=== PATIENT | female | born 1935 | race Caucasian/White ===

== ENCOUNTER 2016-06-05 14:44 | Emergency (ER) | payer OTHER, MEDICARE ==
[~2016-06-05] VITALS: Wt 76.0 kg
[~2016-06-05 14:44] MED LIST: ALBU8.5H3 INH; ALEN70TA30 PO; ATEN100T PO; AUG875 PO; BENA40TA41 PO; CEPH-443 PO; IBUP400T22 PO; INSU100I14 SC; IPRA30SP NASAL; LANT3I SC; LEVO100T87 PO; MECL-77 PO; Meclizine Hcl PO; ULT50 PO
[2016-06-05] MEDS ORDERED: ONDANSETRON 4 MG INJ IV STA (15:27)
[2016-06-05] MEDS ORDERED: morphine 4 MG/ML VIAL IV STA (15:27)
[2016-06-05] MEDS ORDERED: PIPER-TAZO 3.375 GM IV (PMX) 100 ML IVPB STA (15:27)
[2016-06-05] MEDS ORDERED: SODIUM CHLORIDE 0.9% 1L BAG IV* STA (15:27)
[2016-06-05] MEDS ORDERED: VANCOMYCIN 1 GM (PMX) 250 ML IVPB ONE (15:30)
[2016-06-05 15:55] LABS: BASOPHILS % 0.5 % (0.0-2.0); EOSINOPHILS # 0.1 10^3/ul (0.0-0.5); EOSINOPHILS % 1.6 % (0.0-7.0); HEMATOCRIT 40.1 % (37.0-47.0); HEMOGLOBIN 13.4 g/dl (12.0-16.0); LYMPHOCYTES # 1.8 10^3/ul (0.8-2.9); LYMPHOCYTES % 30.7 % (15.0-51.0); MEAN CORPUSCULAR HEMOGLOBIN 28.2 pg (29.0-33.0); MEAN CORPUSCULAR HGB CONC 33.4 g/dl (32.0-37.0); MEAN CORPUSCULAR VOLUME 84.5 fl (82.0-101.0); MEAN PLATELET VOLUME 10.9 fl (7.4-10.4); MONOCYTE # 0.4 10^3/ul (0.3-0.9); MONOCYTES % 7.1 % (0.0-11.0); NEUTROPHIL # 3.4 10^3/ul (1.6-7.5); NEUTROPHILS % 60.1 % (39.0-77.0); PLATELET COUNT 282 10^3/UL (140-440); RED BLOOD COUNT 4.75 10^6/ul (4.20-5.40); UNCORRECTED WBC 5.7 10^3/ul (4.8-10.8); WHITE BLOOD COUNT 5.7 10^3/ul (4.8-10.8)
[2016-06-05 15:57] LABS: URINE BILIRUBIN (Dip) NEGATIVE (NEGATIVE); URINE BLOOD (Dip) NEGATIVE (NEGATIVE); URINE COLOR LT. YELLOW (YELLOW); URINE GLUCOSE (Dip) NEGATIVE (NEGATIVE); URINE KETONES (Dip) NEGATIVE (NEGATIVE); URINE LEUKOCYTE ESTERASE (Dip) NEGATIVE (NEGATIVE); URINE NITRITE (Dip) NEGATIVE (NEGATIVE); URINE UROBILINOGEN (Dip) 0.2 E.U./dL (0.1-1.0)
[2016-06-05 15:58] LABS: CONDITION 1
[2016-06-05] MEDS ORDERED: LABETALOL HCL 20MG INJ IV ONE (16:00)
[2016-06-05 16:02] LABS: ADD UMIC NO; URINE TOTAL PROTEIN (Dip) NEGATIVE (NEGATIVE)
[2016-06-05 16:10] LABS: ALBUMIN 4.3 g/dl (3.3-4.9); CHLORIDE 100 mmol/L (97-110); INR 0.96; PROTIME 12.8 Sec (12.2-14.2); SODIUM 144 mmol/L (135-144)
[2016-06-05 16:11] LABS: PARTIAL THROMBOPLASTIN TIME 32.9 Sec (25.0-35.0); POTASSIUM 4.9 mmol/L (3.5-5.1)
[2016-06-05 16:13] LABS: ALBUMIN/GLOBULIN RATIO 0.86; ALKALINE PHOSPHATASE 135 IU/L (42-121); ANION GAP 20 (8-16); ASPARTATE AMINO TRANSFERASE 26 IU/L (15-46); BLOOD UREA NITROGEN 25 mg/dl (7-20); CALCIUM 10.2 mg/dl (8.4-10.2); CARBON DIOXIDE 29 mmol/L (21-31); CREATININE 0.96 mg/dl (0.44-1.00); GLUCOSE 163 mg/dl (70-220); TOTAL PROTEIN 9.3 g/dl (6.1-8.1)
[2016-06-05 16:14] LABS: ALANINE AMINOTRANSFERASE 16 IU/L (13-69)
[2016-06-05 16:34] LABS: TROPONIN-I < 0.010 ng/ml (0.00-0.12)
--- NOTE | 2016-06-05 16:44 | RADRPT ---
PROCEDURE: XR Chest. CLINICAL INDICATION: Possible sepsis. Abdominal pain TECHNIQUE: Single frontal view of the chest was obtained. COMPARISON: 10/18/2015. FINDINGS: Cardiac silhouette is normal. There is calcification in the thoracic aorta. Pulmonary vasculature appears normal. Oblique discoid atelectasis seen in the upper lung walker bilaterally, left greater than right. No focal airspace consolidation. Costophrenic angles are well defined. IMPRESSION: 1. Oblique atelectasis in both upper lung walker, left greater than right. Pattern is similar to th e prior study may be chronic. 2. No focal airspace process seen. 3. Aortic atherosclerosis RPTAT: [facility] Physician Amber Date Time Electronically viewed and signed by Joseph Sheehan Physician on 06/05/2016 16:43 /
[2016-06-05] MEDS ORDERED: SITA100T8 PO (16:49)
[2016-06-05] MEDS ORDERED: HYD25 PO (16:50)
[2016-06-05] MEDS ORDERED: GEMF600T60 PO (16:50)
[2016-06-05] MEDS ORDERED: ASPI-664 PO (16:54)
[2016-06-05] MEDS ORDERED: POLY15DR25 BOTH EYES (16:55)
[2016-06-05] MEDS ORDERED: IOHEXOL 300MG/ML 150 ML BTL ONE (16:56)
[2016-06-05] MEDS ORDERED: LANT3I SC ×2 (16:56)
[2016-06-05] MEDS ORDERED: SOD CHLORIDE 0.9% 100 ML ONE (16:56)
[2016-06-05] MEDS ORDERED: INSU100I12 SQ (16:58)
[2016-06-05] MEDS ORDERED: CEPH-443 PO (18:43)
[2016-06-05] MEDS ORDERED: BACTDS PO (18:43)
--- NOTE | 2016-06-05 18:44 | ERD ---
ER Documentation Chief Complaint Date/Time DATE: 06/05/16 TIME: 18:44 Chief Complaint RIGHT SIDE ABD PAIN, APPENDECTOMY 2 MONTHS AGO HPI Patient is a 80-year-old female with diabetes and hypertension who presents with abdominal pain. The patient has no fevers. She has pain around the wound site where she had an open appendectomy done on April 14 in [facility]. She has had some discharge from the wound over the past few days. She saw her doctor last week on May 31 and was told today by a visiting nurse to go to the emergency department for evaluation. She has had no treatment as of yet. She said that her primary doctor is Dr. Carpenter. ROS All systems reviewed and are negative except as per history of present illness. Medications Home Meds Active Scripts Sulfamethoxazole-Trimethoprim* (Bactrim* DS) 800-160 Mg Tab, 1 TAB PO BID for 7 Days, TAB Prov:ARNOLD COHEN MD 06/05/16 Cephalexin* (Keflex*) 500 Mg Capsule, 500 MG PO QID for 7 Days, CAP Prov:ARNOLD COHEN MD 06/05/16 Reported Medications Insulin Lispro (Humalog Kwikpen U-100) 100 Unit/1 Ml Insuln.pen, 0 SQ AC MEALS SLIDING SCALE 06/05/16 Insulin Glargine* (Lantus*) 100 Unit/Ml Soln, 20 UNIT SC QPM, #1 VIAL 06/05/16 Insulin Glargine* (Lantus*) 100 Unit/Ml Soln, 35 UNIT SC QAM, #1 VIAL 06/05/16 Polyvinyl Alcohol (Tears Again) 15 Ml Drops, 1 DRP BOTH EYES DAILY, BOTTLE 06/05/16 Aspirin (Low Dose Aspirin) 81 Mg Tablet.dr, 81 MG PO DAILY, #30 TAB 06/05/16 Hydrochlorothiazide* (Hydrochlorothiazide*) 25 Mg Tab, 25 MG PO DAILY, #30 TAB 06/05/16 Gemfibrozil* (Gemfibrozil*) 600 Mg Tablet, 600 MG PO BID, TAB 06/05/16 Sitagliptin* (Januvia*) 100 Mg Tablet, 100 MG PO DAILY, #30 TAB 06/05/16 Levothyroxine Sodium* (Levothyroxine Sodium*) 100 Mcg Tablet, 100 MCG PO AC BREAKFAST, TAB 12/01/14 Albuterol Sulfate* (Proair HFA*) 8.5 Gm Hfa.aer.ad, 2 PUFF INH Q4H Y for WHEEZING AND SOB, INH 12/01/14 Insulin Lispro (Humalog) 100 U/Ml Insuln.pen, 7 UNITS SC QPM, EA 12/01/14 Alendronate Sodium* (Fosamax*) 70 Mg Tablet, 70 MG PO Q7D, TAB 12/01/14 Atenolol* (Atenolol*) 100 Mg Tablet, 100 MG PO DAILY, TAB 12/01/14 Discontinued Reported Medications Meclizine Hcl* (Meclizine Hcl*) 25 Mg Tablet, 25 MG PO Q8H Y for DIZZINESS, TAB 12/01/14 Insulin Glargine* (Lantus*) 100 Unit/Ml Soln, 35 UNIT SC DAILY, EA 12/01/14 Ipratropium Vilonia* (Ipratropium Vilonia*) 21 Mcg [place], 2 SPRAY NASAL TID, SPRAY TO EACH NOSTRIL 12/01/14 Insulin Lispro (Humalog) 100 U/Ml Insuln.pen, 7 UNITS SC AFTERNOON, EA 12/01/14 Benazepril Hcl* (Benazepril Hcl*) 40 Mg Tablet, 40 MG PO DAILY, TAB 12/01/14 Discontinued Scripts Cephalexin* (Keflex*) 500 Mg Capsule, 500 MG PO TID for 7 Days, CAP Prov:DIANA OREILLY MD 10/18/15 Ibuprofen* (Ibuprofen*) 400 Mg Tablet, 400 MG PO Q6H Y for PAIN, #20 TAB Prov:RICH KNIGHT MD 04/04/15 Tramadol HCl (Tramadol HCl) 50 Mg Tab, 50 MG PO BID, #20 TAB Prov:RICH KNIGHT MD 04/04/15 Amoxicillin-Clavulanate K* (Augmentin*) 875 Mg Tab, 875 MG PO BID, #14 TAB Prov:NAYELY PANTOJA 12/04/14 [Meclizine Hcl] 25 MG TAB No Conflict Check, 25 MG PO TID, #60 TAB Prov:NAYELY PANTOJA 12/04/14 Allergies Allergies: Coded Allergies: No Known Drug Allergy (Verified Allergy, Unknown, 06/05/16) PMhx/Soc History of Surgery: Yes (Cataract/Sinus, gallbladder ) Anesthesia Reaction: No Hx Neurological Disorder: No Hx Respiratory Disorders: Yes (Hx Asthma) Hx Cardiac Disorders: Yes (HTN) Hx Psychiatric Problems: No Hx Miscellaneous Medical Probl: Yes (dm) Hx Alcohol Use: Yes (occassional ) Hx Substance Use: No Hx Tobacco Use: No Smoking Status: Never smoker FmHx Family History: diabetes Physical Exam Vitals Vital Signs Date Time Temp Pulse Resp B/P Pulse Ox O2 Delivery O2 Flow Rate FiO2 06/05/16 17:47 61 16 120/96 94 Room Air 06/05/16 14:53 97.9 71 18 208/85 96 Physical Exam Const: No acute distress Head: Atraumatic Eyes: Normal Conjunctiva ENT: Normal External Ears, Nose and Mouth. Neck: Full range of motion..~ No meningismus. Resp: Clear to auscultation bilaterally Cardio: Regular rate and rhythm, no murmurs Abd: Soft, non tender, non distended. Normal bowel sounds Skin: Mild erythema to the surgical wound sites, no pus from the wound at this time Back: No midline or flank tenderness Ext: No cyanosis, or edema Neur: Awake and alert Psych: Normal Mood and Affect Result Diagram: 06/05/16 1530 06/05/16 1530 Results 24 hrs Laboratory Tests Test 06/05/16 15:27 06/05/16 15:30 06/05/16 15:45 06/05/16 17:33 Urine Bilirubin NEGATIVE Urine Clarity CLEAR Urine Color LT. YELLOW Urine Glucose NEGATIVE% Urine Hemoglobin NEGATIVE Urine Ketones NEGATIVE Urine Leukocyte Esterase NEGATIVE Urine Nitrite NEGATIVE Urine Specific [place] 1.010 Urine Total Protein NEGATIVE Urine Urobilinogen 0.2 E.U./dL Urine pH 6.0 Activated Partial Thromboplast Time 32.9Sec Alanine Aminotransferase (ALT/SGPT) 16IU/L Albumin 4.3g/dl Albumin/Globulin Ratio 0.86 Alkaline Phosphatase 135IU/L Anion Gap 20 Aspartate Amino Transf (AST/SGOT) 26IU/L Basophils # 0.010^3/ul Basophils % 0.5% Blood Morphology Comment Blood Urea Nitrogen 25mg/dl Calcium Level 10.2mg/dl Carbon Dioxide Level 29mmol/L Chloride Level 100mmol/L Creatinine 0.96mg/dl Direct Bilirubin 0.00mg/dl Eosinophils # 0.110^3/ul Eosinophils % 1.6% Globulin 5.00g/dl Glucose Level 163mg/dl Hematocrit 40.1% Hemoglobin 13.4g/dl INR International Normalized Ratio 0.96 Indirect Bilirubin 0.0mg/dl Lymphocytes # 1.810^3/ul Lymphocytes % 30.7% Mean Corpuscular Hemoglobin 28.2pg Mean Corpuscular Hemoglobin Concent 33.4g/dl Mean Corpuscular Volume 84.5fl Mean Platelet Volume 10.9fl Monocytes # 0.410^3/ul Monocytes % 7.1% Neutrophils # 3.410^3/ul Neutrophils % 60.1% Nucleated Red Blood Cells # 0.010^3/ul Nucleated Red Blood Cells % 0.0/100WBC Platelet Count 33575^3/UL Potassium Level 4.9mmol/L Prothrombin Time 12.8Sec Prothrombin Time Ratio 1.0 Red Blood Count 4.7510^6/ul Red Cell Distribution Width 14.0% Sodium Level 144mmol/L Total Bilirubin 0.0mg/dl Total Protein 9.3g/dl Troponin I < 0.010ng/ml White Blood Count 5.710^3/ul Lactic Acid Level 0.9mmol/L 1.1mmol/L Current Medications Medications (Trade) Dose Ordered Sig/Sadie Route PRN Reason Start Time Stop Time Status Last Admin Dose Admin Sodium Chloride 2360 ml 2,360 ml BOLUS OVER 2 HOURS STAT IV* 06/05/16 15:27 06/05/16 15:28 DC 06/05/16 15:46 Vancomycin HCl 250 ml @ 125 mls/hr ONCE ONCE IVPB 06/05/16 15:30 06/05/16 17:29 DC 06/05/16 16:35 Piperacillin Sod/ Tazobactam Sod (Zosyn 3.375gm/ 100 ml (Pmx)) 100 ml @ 200 mls/hr ONCE STAT IVPB 06/05/16 15:27 06/05/16 15:56 DC 06/05/16 15:46 Morphine Sulfate (morphine) 4 mg ONCE STAT IV 06/05/16 15:27 06/05/16 15:28 DC 06/05/16 15:47 Ondansetron HCl (Zofran Inj) 4 mg ONCE STAT IV 06/05/16 15:27 06/05/16 15:28 DC 06/05/16 15:46 Labetalol HCl (Labetalol) 20 mg ONCE ONCE IV 06/05/16 16:00 06/05/16 16:01 DC IV Flush 10 ml 10 ml STK-MED ONCE .ROUTE 06/05/16 16:56 06/05/16 16:57 DC 06/05/16 16:56 Sodium Chloride (NS) 100 ml @ ud STK-MED ONCE .ROUTE 06/05/16 16:56 06/05/16 16:57 DC 06/05/16 16:56 Iohexol (Omnipaque 300mg/ ml) 150 ml STK-MED ONCE .ROUTE 06/05/16 16:56 06/05/16 16:57 DC 06/05/16 16:56 Procedures/MDM EKG read by me: Rate/Rhythm: Regular rate and rhythm at a rate of 70 Intervals: Normal Impression: No evidence of ischemia or arrhythmia CT shows no sign of intra-abdominal abscess per radiology. Patient is a 80-year-old female presents with discharge from a surgical site wound. There is mild erythema but no signs of tony pus. CT scan does not show any signs of intra-abdominal abscess. I will treat with Bactrim and Keflex for a minimal skin cellulitis but I do not think the patient requires admission at this time. Her vital signs are normal and her white blood cell count is normal. She has no fever. She can return for any worsening symptoms. She should follow-up with her primary doctor within 48 hours for recheck. She was given copies of her laboratory studies and CT scan report prior to discharge. Departure Diagnosis: Primary Impression: Cellulitis Site of cellulitis: trunk Site of cellulitis of trunk: abdominal wall Qualified Code: L03.311 - Cellulitis of abdominal wall Additional Impression: Abdominal pain Abdominal location: generalized Qualified Code: R10.84 - Generalized abdominal pain Condition: Fair Patient Instructions: Cellulitis Additional Instructions: Llame al doctor MAANA y crystal linh CAMILO PARA DENTRO DE 1-2 ESPITIA.Dgale a la secretaria que nosotros le instruimos hacer esta camilo.Avise o llame si romero condicin se empeora antes de la camilo. Regresa aqui si peor o no mejor. ARNOLD COHEN MD Jun 05, 2016 18:44
--- NOTE | 2016-06-05 18:48 | RADRPT ---
PROCEDURE: CT Abdomen and Pelvis with contrast. CLINICAL INDICATION: Abdominal pain. TECHNIQUE: A CT scan of the abdomen and pelvis was performed with intravenous contrast. The patie nt was scanned following the uncomplicated intravenous administration of 100 cc of Isovue 300. Johnny nal and sagittal reformatted images were obtained from the axial source images. Images were reviewed on a high-resolution PACS workstation. CTDIvol: 19.13 mGy. DLP: 1071.08 mGy-cm. COMPARISON: None. FINDINGS: A patchy ground-glass opacities in both lower lungs. Mild atelectasis is noted in the right middle lobe. The liver is unremarkable. The patient is status post cholecystectomy. There is intrahepatic and ex trahepatic biliary ductal dilatation (CBD: 1.5 cm), probably due to age and absence of the gallbladd er. The spleen is not enlarged. No pancreatic lesion is identified and there is no pancreatic ducta l dilatation. The adrenal glands are unremarkable. The kidneys are normal in size. There is no perinephric fat stranding. No hydronephrosis is seen. The small and large bowel are normal in caliber. There is no bowel wall thickening. The patient stat us post recent appendectomy. There is infiltration of the subcutaneous fat at two sites in the righ t abdominal wall, but no abscess is identified in these regions. Ill-defined tubular infiltrative fo cus measuring approximately 1 cm diameter and 7 cm in length is seen within the right lateral perito shiela cavity anterior to the cecum, possibly an old drainage catheter track. There is mild rim enhan cement of this focus, raising the possibility of a developing abscess at this site. Minimal fluid i s seen inferior to the cecum, without evidence of abscess formation in this region. The urinary bladder is unremarkable. The pelvic organs are within normal limits. No lymphadenopathy is identified. There is no ascites. No pneumoperitoneum is seen. There are no art erial calcifications. No suspicious osseous lesion is idenitified. IMPRESSION: 1. Status post recent appendectomy. There is minimal fluid inferior to the cecum, without evidence of abscess formation in this region. 2. Ill-defined tubular infiltrate focus measuring approximately 1 cm in diameter and 7 cm in length within the right lateral peritoneal cavity anterior to the cecum, probably an old drainage catheter track. There is mild rim enhancement of this focus which extends through the right abdominal wall s ubcutaneous fat, raising the possibility of a developing abscess at this site. 3. Infiltration of the subcutaneous fat in the lower right abdominal wall, likely representing the surgical incision site. No enhancing fluid collection is identified in this region to suggest the p resence of an abscess. 4. Status post prior cholecystectomy. Call report: A call report of the findings was made to Dr. Zapata at 06:43 p.m. on 06/05/2016. RPTAT: HTAR .Renard Martinez MD, MD Date Time Electronically viewed and signed by .Renard Martinez MD, on 06/05/2016 18:48 .R/
[2016-06-05 19:45] VITALS: BP 111/90; PULSE 59; RESP 16; TEMP 98.9
== END 2016-06-05 19:45 | disposition home or self-care (01) ==
LOC: E/R 14:44
DX: L03.311 Cellulitis of abdominal wall (principal); R10.84 Generalized abdominal pain; J45.909 Unspecified asthma, uncomplicated; I10 Essential (primary) hypertension; E11.9 Type 2 diabetes mellitus without complications
CPT/HCPCS: 36415; 71010; 74177; 80053; 81003; 83605; 84484; 85025; 85610; 85730; 87040; 87086; 93005; 96374; 96375; J2270; J2405; J2543; J3370; J7030; Q9967; Z7502; Z7610

== ENCOUNTER → 2016-08-05 | Outpatient (CLI) | payer MEDICARE, OTHER ==
[~2016-08-05] MED LIST changes: +ALBUTEROL 0.083% (NEB) 2.5 MG/3 ML AMP ONE; +ASPI-664 PO; -AUG875 PO; +BACTDS PO; -BENA40TA41 PO; +GEMF600T60 PO; +HYD25 PO; -IBUP400T22 PO; +INSU100I12 SQ; -IPRA30SP NASAL; -MECL-77 PO; -Meclizine Hcl PO; +POLY15DR25 BOTH EYES; +SITA100T8 PO; -ULT50 PO
[2016-08-05 13:33] LABS: AADO2 Arterial 32.7 mmHg (7.0-24.0); Allen Test ACCEPTAB; Arterial Base Excess -1.6 mmol/L (-3.0-3); Arterial COHb 0.5 % (0.0-3.0); Arterial Fraction of Oxyhgb 90.6 % (93.0-99.0); Arterial HCO3 24.1 mmol/L (22.0-26.0); Arterial MetHb 0.4 % (0.0-1.5); MODE ROOM AIR
== END | disposition home or self-care (01) ==
LOC: PUL 13:06
PROVIDERS: ATTEND Internal Medicine
DX: R06.02 Shortness of breath (principal)
CPT/HCPCS: 36600; 82803; 94060; 94726; 94729

== ENCOUNTER 2016-10-12 07:46 | Emergency (ER) | payer MEDICARE, OTHER ==
[~2016-10-12] VITALS: Ht 152.4 cm; Wt 77.5 kg
[~2016-10-12 07:46] MED LIST changes: -ALBUTEROL 0.083% (NEB) 2.5 MG/3 ML AMP ONE
[2016-10-12 07:50] VITALS: Ht 152.4 cm; Wt 77.5 kg
[2016-10-12] MEDS ORDERED: NICARDipine HCL 30 MG CAPSULE PO ONE (08:30)
[2016-10-12] MEDS ORDERED: ACETAMINOPHEN 325 MG TAB PO ONE (08:30)
--- NOTE | 2016-10-12 08:47 | RADRPT ---
PROCEDURE: CT Brain without contrast. CLINICAL INDICATION: Headache. TECHNIQUE: A CT of the brain was performed on a multidetector CT scanner utilizing axial sections from the skull base through the vertex without contrast. Images were reviewed on a high-resolution [employer] workstation. Exam CTDI = 41.88 mGy and the DLP = 630.2 mGy-cm. One or the following dose reduction techniques were used: -Automated exposure control. -Adjustment of the mA and/or KV according to patient's size. -Use of iterative reconstruction technique COMPARISON: CT of the brain from 12/01/2014. FINDINGS: Mild diffuse cerebral and cerebellar atrophy is present. There is proportionate dilatation of the v entricular system and sulci in a symmetric fashion. There is prominence of the extraaxial spaces sec ondary to atrophy. There is no evidence of intracranial hemorrhage, mass effect or midline shift. N o abnormal intra-axial or extra-axial fluid collections are seen. The density of the brain is ashlie l and the neal/white matter differentiation is well preserved. Mild patchy diffuse deep white matte r microangiopathic ischemic change is seen. There is mucosal thickening in the ethmoid air cells an d left frontal sinus with a small inclusion cyst in the left ethmoid air cells suggesting inflammato ry change. There is persistent partial opacification of the mastoid air cells on the left.. There are intracranial atherosclerotic calcifications present. IMPRESSION: 1. Mild age related involutional change without evidence of a superimposed acute intracranial proce ss. 2. Microangiopathic ischemic change. 3. Findings suggesting inflammatory change in paranasal sinuses. 4. Intracranial atherosclerosis. RPTAT: AACC Physician Amber Date Time Electronically viewed and signed by Physician Amber on 10/12/2016 08:47 /
[2016-10-12] MEDS ORDERED: ACET325T33 PO (08:54)
--- NOTE | 2016-10-12 08:55 | ERD ---
ER Documentation Chief Complaint Date/Time DATE: 10/12/16 TIME: 08:55 Chief Complaint EVAL OF HIGH B/P AND HUMMEL HPI Patient is an 81-year-old female with hypertension and diabetes who presents with high blood pressure. She is complaining of headache and dizziness. Her symptoms started 2 days ago. She is taking her blood pressure medications. She has had no fevers. She has had no treatment for pain as of yet. She did not call her primary doctor Dr. Carpenter as of yet. She has no slurred speech or trouble with moving her arms or legs. Upon review of old medical records the patient has multiple visits for various complaints. ROS All systems reviewed and are negative except as per history of present illness. Medications Home Meds Active Scripts Acetaminophen* (Tylenol*) 325 Mg Tablet, 2 TAB PO Q8 Y for PAIN AND OR ELEVATED TEMP, #20 TAB Prov:ARNOLD COHEN MD 10/12/16 Sulfamethoxazole-Trimethoprim* (Bactrim* DS) 800-160 Mg Tab, 1 TAB PO BID for 7 Days, TAB Prov:ARNOLD COHEN MD 06/05/16 Cephalexin* (Keflex*) 500 Mg Capsule, 500 MG PO QID for 7 Days, CAP Prov:ARNOLD COHEN MD 06/05/16 Reported Medications Insulin Lispro (Humalog Kwikpen U-100) 100 Unit/1 Ml Insuln.pen, 0 SQ AC MEALS SLIDING SCALE 06/05/16 Insulin Glargine* (Lantus*) 100 Unit/Ml Soln, 20 UNIT SC QPM, #1 VIAL 06/05/16 Insulin Glargine* (Lantus*) 100 Unit/Ml Soln, 35 UNIT SC QAM, #1 VIAL 06/05/16 Polyvinyl Alcohol (Tears Again) 15 Ml Drops, 1 DRP BOTH EYES DAILY, BOTTLE 06/05/16 Aspirin (Low Dose Aspirin) 81 Mg Tablet.dr, 81 MG PO DAILY, #30 TAB 06/05/16 Hydrochlorothiazide* (Hydrochlorothiazide*) 25 Mg Tab, 25 MG PO DAILY, #30 TAB 06/05/16 Gemfibrozil* (Gemfibrozil*) 600 Mg Tablet, 600 MG PO BID, TAB 06/05/16 Sitagliptin* (Januvia*) 100 Mg Tablet, 100 MG PO DAILY, #30 TAB 06/05/16 Levothyroxine Sodium* (Levothyroxine Sodium*) 100 Mcg Tablet, 100 MCG PO AC BREAKFAST, TAB 12/01/14 Albuterol Sulfate* (Proair HFA*) 8.5 Gm Hfa.aer.ad, 2 PUFF INH Q4H Y for WHEEZING AND SOB, INH 12/01/14 Insulin Lispro (Humalog) 100 U/Ml Insuln.pen, 7 UNITS SC QPM, EA 12/01/14 Alendronate Sodium* (Fosamax*) 70 Mg Tablet, 70 MG PO Q7D, TAB 12/01/14 Atenolol* (Atenolol*) 100 Mg Tablet, 100 MG PO DAILY, TAB 12/01/14 Allergies Allergies: Coded Allergies: No Known Drug Allergy (Verified Allergy, Unknown, 06/05/16) PMhx/Soc History of Surgery: Yes (Cataract/Sinus, gallbladder ) Anesthesia Reaction: No Hx Neurological Disorder: No Hx Respiratory Disorders: Yes (Hx Asthma) Hx Cardiac Disorders: Yes (HTN) Hx Psychiatric Problems: No Hx Miscellaneous Medical Probl: Yes (dm) Hx Alcohol Use: Yes (occassional ) Hx Substance Use: No Hx Tobacco Use: No Smoking Status: Never smoker FmHx Family History: diabetes Physical Exam Vitals Vital Signs Date Time Temp Pulse Resp B/P Pulse Ox O2 Delivery O2 Flow Rate FiO2 10/12/16 08:03 54 18 190/72 94 Room Air 10/12/16 07:50 97.4 57 19 209/84 94 Physical Exam Const: No acute distress Head: Atraumatic Eyes: Normal Conjunctiva ENT: Normal External Ears, Nose and Mouth. Neck: Full range of motion..~ No meningismus. Resp: Clear to auscultation bilaterally Cardio: Regular rate and rhythm, no murmurs Abd: Soft, non tender, non distended. Normal bowel sounds Skin: No petechiae or rashes Back: No midline or flank tenderness Ext: No cyanosis, or edema Neur: Awake and alert, no slurred speech, cranial nerves II through XII intact, strength is 5 out of 5 in all 4 extremities, no pronator drift Psych: Normal Mood and Affect Results 24 hrs Current Medications Medications (Trade) Dose Ordered Sig/Sadie Route PRN Reason Start Time Stop Time Status Last Admin Dose Admin Nicardipine HCl (Cardene) 30 mg ONCE ONCE PO 10/12/16 08:30 10/12/16 08:31 DC 10/12/16 08:16 Acetaminophen (Tylenol Tab) 650 mg ONCE ONCE PO 10/12/16 08:30 10/12/16 08:31 DC 10/12/16 08:16 Procedures/MDM EKG read by me: Rate/Rhythm: Sinus bradycardia at a rate of 54 Intervals: Normal Impression: Sinus bradycardia without ischemia CT brain shows no intracranial hemorrhage or mass per radiology. Patient is an 81-year-old female who presents with high blood pressure and headache. CT brain shows no intracranial hemorrhage or mass. EKG showed bradycardia but no signs of ischemia. At this point I doubt intracranial hemorrhage, intracranial mass, or meningitis. I doubt stroke. The patient was given Cardene for blood pressure and Tylenol for headache. The patient will be discharged home and can follow-up closely with her primary doctor within 24-48 hours. She should continue to take her blood pressure medicines as directed but will need to follow-up closely with her primary doctor to determine if she requires changing or adding blood pressure medications. She was given a copy of her CT scan report prior to discharge. Departure Diagnosis: Primary Impression: Headache Headache type: unspecified Headache chronicity pattern: acute headache Intractability: not intractable Qualified Code: R51 - Acute nonintractable headache, unspecified headache type Additional Impression: Hypertension Hypertension type: essential hypertension Qualified Code: I10 - Essential hypertension Condition: Fair Patient Instructions: Self-Care for Headaches, High Blood Pressure ( Hypertension) Additional Instructions: Llame al doctor MAANA y crystal linh CAMILO PARA DENTRO DE 1-2 ESPITIA.Dgale a la secretaria que nosotros le instruimos hacer esta camilo.Avise o llame si romero condicin se empeora antes de la camilo. Regresa aqui si peor o no mejor. ARNOLD COHEN MD October 12, 2016 08:55
[2016-10-12 09:51] VITALS: BP 133/55; PULSE 53; RESP 17
== END 2016-10-12 09:53 | disposition home or self-care (01) ==
LOC: E/R 07:46
DX: R51 Headache (principal); I10 Essential (primary) hypertension; J45.909 Unspecified asthma, uncomplicated; E11.9 Type 2 diabetes mellitus without complications; Z79.4 Long term (current) use of insulin; Z79.82 Long term (current) use of aspirin
CPT/HCPCS: 70450; 93005